=== PATIENT | female | born 1995 | race African-American/Black ===

== ENCOUNTER 2024-01-27 13:04 | Emergency (ER) | payer SELFPAY ==
[2024-01-27] MEDS: Ketorolac 60 MG/2 ML SDV IM ONE (13:43)
[2024-01-27] MEDS: cefTRIAXone 500 MG Vial IM ONE (13:43)
[2024-01-27] MEDS: Lidocaine 1% PF 2 ML SDV INJECT ONE (13:43)
[2024-01-27 14:04] LABS: APPEARANCE,URINE CLOUDY (Clear); BILIRUBIN,URINE 1+ (Negative); COLOR,URINE RED (Yellow); GLUCOSE,URINE NEGATIVE (Negative); KETONES,URINE 1+ (Negative); LEUKOCYTE ESTERASE,URINE 1+ (Negative); NITRITE,URINE NEGATIVE (Negative); OCCULT BLOOD,URINE 3+ (Negative); PROTEIN,URINE 2+ (Negative); UROBILINOGEN,URINE 0.2 (0.2-1.0)
[2024-01-27 14:15] LABS: A/G RATIO 1.1 (1-2); ALBUMIN 3.8 g/dl (3.4-5.0); ANION GAP 14.7 (5-15); BILIRUBIN TOTAL 0.3 mg/dL (0.2-1.0); BUN/CREATININE RATIO 14.4 (14-18); CALCIUM 8.5 mg/dL (8.5-10.1); CREATININE 0.9 mg/dL (0.55-1.02); EST CRCL DRUG DOSING (CG) 81.8 mL/min; MAGNESIUM 1.9 mg/dL (1.8-2.4); POTASSIUM,K 3.7 mEq/L (3.5-5.1); PROTEIN TOTAL,TP 7.4 g/dl (6.4-8.2)
[2024-01-27 14:46] LABS: BACTERIA,URINE MODERATE /hpf (FEW); RBC,URINE TOO NUMEROUS TO CNT /hpf (0-5)
[2024-01-27 14:47] LABS: MUCUS,URINE MANY /hpf (FEW)
[2024-01-27 14:49] LABS: BASOPHILS ABSOLUTE AUTO 0.1 K/mm3 (0.0-0.2); BASOPHILS PERCENT AUTO 0.7 % (0.0-1.0); EOSINOPHILS ABSOLUTE AUTO 0.1 K/mm3 (0.0-0.4); EOSINOPHILS PERCENT AUTO 1.7 % (0.0-6.0); HEMOGLOBIN 9.6 gm/dl (12.0-16.0); IMMATURE GRAN ABSOLUTE AUTO 0.02 K/mm3 (0.00-0.05); IMMATURE GRAN PERCENT AUTO 0.3 % (0.0-0.4); LYMPHOCYTES ABSOLUTE AUTO 1.8 K/mm3 (1.0-4.8); LYMPHOCYTES PERCENT AUTO 25.2 % (24.0-44.0); MEAN CORPUSCULAR HGB CONC 29.1 g/dl (32.0-36.0); MEAN CORPUSCULAR VOLUME 68.8 fl (83.0-99.0); MONOCYTES ABSOLUTE AUTO 0.5 K/mm3 (0.0-0.8); MONOCYTES PERCENT AUTO 6.9 % (0.0-8.0); NEUTROPHILS ABSOLUTE AUTO 4.8 K/mm3 (1.8-7.7); NEUTROPHILS PERCENT AUTO 65.2 % (41.0-71.0); PLATELET COUNT,PLT 386 K/mm3 (150-400); WHITE BLOOD CELL COUNT,WBC 7.27 K/mm3 (3.9-11.3)
[2024-01-27 15:38] LABS: FERRITIN 6 ng/ml (8-252); IRON,FE 13 ug/dL (50-170)
[2024-01-27 15:40] LABS: SLIDE REVIEW ABNORMAL SMEAR
== END 2024-01-27 16:00 | disposition home or self-care (01) ==
LOC: JD.ED 13:04
DX: N73.9 Female pelvic inflammatory disease, unspecified (principal); D50.9 Iron deficiency anemia, unspecified; N30.01 Acute cystitis with hematuria; Z79.899 Other long term (current) drug therapy; Z86.16 Personal history of COVID-19
CPT/HCPCS: 36415; 76830; 76830-26; 80053; 81001; 81003; 82728; 83540; 83690; 83735; 84703; 85025; 86592; 87086; 96372; 99284; G0433; J0696; J1885; J3490